=== PATIENT | male | born 1975 | race African-American/Black ===

== ENCOUNTER → 2017-12-18 09:35 | Outpatient (CLI) | payer OTHER | END | disposition home or self-care (01) | LOC: D.US 09:35 | DX: I73.9 Peripheral vascular disease, unspecified (principal) ==

== ENCOUNTER 2018-02-21 05:23 | Day surgery (SDC) | payer OTHER ==
[~2018-02-21] VITALS: Ht 182.9 cm; Wt 122.5 kg
--- NOTE | ~2018-02-21 | OP ---
PATIENT NAME: KRANTHI LIMA MEDICAL RECORD: [id number] :77 LOCATION:[facility] ADMISSION DATE: SURGEON: YAHAIRA MATHIAS MD DATE OF OPERATION: 02/21/2018 PREOPERATIVE DIAGNOSES: 1. Venous insufficiency which is CEAP-4 involving the right lower extremity. Venous reflux has been refractory to conservative therapies. 2. Symptomatic left lower extremity varicose veins. POSTOPERATIVE DIAGNOSES: 1. Venous insufficiency which is CEAP-4 involving the right lower extremity. Venous reflux has been refractory to conservative therapies. 2. Symptomatic left lower extremity varicose veins. PROCEDURES: 1. Right lower extremity radiofrequency ablation utilizing the VNUS device, greater saphenous vein. The length of greater saphenous vein treated was 62 cm. 2. Avulsion phlebectomies times 11, left lower extremity. 3. Therapeutic sclerotherapy through the sheath, right lower extremity. SURGEON: Yahaira Mathias MD TITLE AGENT: None. BLOOD LOSS: Minimal. ANESTHESIA: General. COMPLICATIONS: None. The risks, possible complications, and alternatives to the procedure were explained to the patient. He elects to proceed. I specifically discussed with him the risk of bleeding, requiring emergency reoperation; infection; regrowth or persistence of varicosities; the fact that the procedure may not improve his venous insufficiency changes; and that he may require additional procedures in the future. He has brawny edema involving the right lower extremity from the knee down. The foam sclerotherapy is utilized to try to close down perforating veins. OPERATIVE COURSE: The patient was conveyed to the operating room electively on 02/21/2018. General anesthesia was induced by the anesthesia staff. Both lower extremities were sterilely prepped and draped. Under ultrasonographic guidance, I percutaneously accessed the right greater saphenous vein in an antegrade fashion. There was no radiologist present for this procedure. The surgeon interpretation of the ultrasonographic images is dictated within the body of this operative note. Static ultrasonographic images are captured and are placed in the chart. A guidewire was advanced easily. A small skin nia was accomplished. A dilator sheath was advanced over the wire. The dilator and wire were removed. This sheath was sutured in place. Through the sheath, the radiofrequency device was advanced. It was advanced to the junction of greater saphenous and common saphenous veins. I then withdrew it about 2 cm into the greater saphenous vein. OPERATIVE REPORT [id number] KRANTHI LIMA Under ultrasonographic guidance, I injected a tumescent crystalloid solution around the greater saphenous vein in order to protect any nerve structure from thermal injury. It acts as a heat sink around the vein. The patient was positioned in the Trendelenburg position. He was given 80 mg of Lovenox subcutaneously. I checked the right groin and there had been no movement of the tip of the radiofrequency catheter. I then activated the radiofrequency catheter twice while applying external manual pressure. With each 7 cm pullback, I treated again. I then removed the radiofrequency catheter. I injected a foamed sclerosant through the sheath. This was done when the patient was in the reverse Trendelenburg position. I then removed the sheath. The puncture site was closed with a single horizontal mattress 4-0 Vicryl Rapide suture. The patient was then positioned in the Trendelenburg position again. The varicose veins involving the left lower extremity, which had been marked preoperatively, were removed utilizing an avulsion technique. I used small puncture wounds and then removed the varicose veins through these puncture wounds. Sterile dressings were applied. The patient was then extubated and conveyed to the postanesthesia care unit where he was in stable condition. He will be sent back to the long term facility. Today is Monday. The lower extremity dressings can be removed on Monday. I have given him a prescription for a narcotic analgesic. Hopefully, he won't require the entire prescription of [address] [place]. There is no reason for the patient to follow up with me in the office unless he develops a complication related to this operative procedure. I will be rounding out at the long term and I can see him out there. TRANSINT:[id number] Voice Confirmation ID: [id number] DOCUMENT ID: [id number] YAHAIRA MATHIAS MD at 1603 CC: DANE VARMA MD, YAHAIRA JUAN MD, NHI PENA MD and [id number] L DICTATION DATE: 02/21/18 1321 [employer] MAN: 02/21/18 1421 [facility] 02/21/18 [facility] [address] [id number]
[2018-02-21 07:12] LABS: HEMATOCRIT 39.7 % (42.0-54.0); HEMOGLOBIN 13.2 g/dL (13.5-17.5); MCH 27.6 pg (26.0-34.0); MCHC 33.2 g/dL (31.0-37.0); MCV 82.9 fL (80.0-100.0); RBC 4.79 10x6/uL (4.20-6.10); RDW 14.6 % (11.5-14.5)
[2018-02-21 07:25] LABS: CALC OSMOLALITY 279 mosm/kg (275-300); CALCIUM 8.6 mg/dL (8.5-10.1); CHLORIDE - SERUM 104 mmol/L (98-107); CREATININE - SERUM 0.8 mg/dL (0.6-1.3); GLUCOSE 125 mg/dL (74-106); POTASSIUM - SERUM 3.6 mmol/L (3.5-5.1); SODIUM 141 mmol/L (136-145); UREA NITROGEN 7 mg/dL (7-18); eGFR NON AFRICAN AMERICAN > 90 mL/min (90-120)
[2018-02-21] MEDS ORDERED: ZOVIRAX400 MG PO (08:54)
[2018-02-21] MEDS ORDERED: BAYER CHEWABLE81 MG PO (08:55)
[2018-02-21] MEDS ORDERED: NORVASC10 MG PO (08:55)
[2018-02-21] MEDS ORDERED: LIPITOR10 MG (08:56)
[2018-02-21] MEDS ORDERED: COREG25 MG (08:56)
[2018-02-21] MEDS ORDERED: NEURONTIN 300300 MG (08:57)
[2018-02-21] MEDS ORDERED: FUROSEMIDE20 MG PO (08:57)
[2018-02-21] MEDS ORDERED: FUROSEMIDE20 MG (08:57)
[2018-02-21] MEDS ORDERED: NOVOLIN 70/30 110 ML (08:59)
[2018-02-21] MEDS ORDERED: POTASSIUM CHLO10 ME1 PO (09:00)
[2018-02-21] MEDS ORDERED: GLUCOPHAGE1000 MG (09:00)
[2018-02-21] MEDS ORDERED: COUMADIN5 MG PO (09:01)
[2018-02-21 09:16] VITALS: BP 141/86; Ht 182.9 cm; Wt 122.5 kg
[2018-02-21 09:31] LABS: APTT 32.6 SECONDS (22.8-39.4); INR 1.76 (0.85-1.17)
== END 2018-02-21 15:10 | disposition home or self-care (01) ==
LOC: D.OPS 05:23
PROVIDERS: Anesthesiology
DX: I87.2 Venous insufficiency (chronic) (peripheral) (principal); I83.892 Varicose veins of left lower extremity with other complications; Z01.812 Encounter for preprocedural laboratory examination